=== PATIENT | female | born 2000 | race Caucasian/White ===

== ENCOUNTER 2018-01-12 13:25 | Emergency (ER) | payer MEDICAID, OTHER ==
[2018-01-12 15:41] VITALS: BP 123/70
--- NOTE | 2018-01-12 16:16 | UC ---
Eye Complaint HPI - HPI Summary HPI Summary: 17-year-old female presents with complaints of redness and swelling below both her eyes for past 3 days. Associated with some mild redness of the eyes, itching, and tearing. She states she had a similar episode a little over 2 weeks ago that eventually resolved on its own after about 10 days of symptoms. She has tried [id number] Visine and Benadryl with no relief of symptoms. Denies injury, fever, chills, purulent drainage, visual changes, eye pain, nasal congestion, ear pain, or cough. - History of Current Complaint Chief Complaint: UCSkin Stated Complaint: BILATERAL EYE COMPLAINT Time Seen by Provider: 01/12/18 15:48 Hx Obtained From: Patient Hx Last Menstrual Period: 12/21/17 ?: No Onset/Duration: Gradual Onset, Lasting Days - 3 Timing: Constant Severity Initially: Mild Severity Currently: Mild Pain Intensity: 3 Location of Injury: Conjunctiva, Eye Lid (lower) Aggravating Factor(s): Nothing Alleviating Factor(s): Nothing Associated Signs And Symptoms: Positive: Drainage (Clear), Swelling. Negative: Photophobia, Drainage (Purulent), Vision Impairment Bilateral, Fever Related History: Similar Episode - Allergies/Home Medications Allergies/Adverse Reactions: Allergies Allergy/AdvReac Type Severity Reaction Status Date / Time Penicillins Allergy Hives Verified 01/12/18 15:37 Home Medications: Home Medications Norgestimate-Ethinyl Estradiol [Ortho-Cyclen 28 Tablet] 1 each PO BEDTIME [History Confirmed 01/12/18] Tetrahydrozoline HCl/Zinc Sulf [Visine Allergy Relief Drop] 2 drop BOTH EYES DAILY 01/12/18 [History Confirmed 01/12/18] PMH/Surg Hx/FS Hx/Imm Hx Previously Healthy: Yes - denies significant past medical history - Surgical History Surgical History: None - Family History Family History: Noncontributory - Social History Occupation: Student Lives: With Family Alcohol Use: None Substance Use Type: None Smoking Status (MU): Never Smoked Tobacco Household Exposure Type: Cigarettes Review of Systems Constitutional: Fever Skin: Other - bilateral lower lid erythema Eyes: Eye Redness, Other - Eye itching, tearing ENT: Negative Respiratory: Negative Cardiovascular: Negative Is Patient Immunocompromised?: No All Other Systems Reviewed And Are Negative: Yes Physical Exam Triage Information Reviewed: Yes Appearance: Well-Appearing, No Pain Distress, Well-Nourished Vital Signs: Initial Vital Signs Temp 98.0 F 01/12/18 15:31 Pulse 73 01/12/18 15:31 Resp 18 01/12/18 15:31 BP 123/70 01/12/18 15:31 Pulse Ox 100 01/12/18 15:31 Vital Signs Reviewed: Yes Eyes: Positive: Other: - Mild bilateral conjunctival injection without discharge. Mild erythema and puffiness to bilateral lower lids. No lesions noted. ENT: Positive: Pharynx normal, TMs normal, Uvula midline. Negative: Nasal congestion, Nasal drainage Neck: Positive: Supple, Nontender Respiratory: Positive: Lungs clear, Normal breath sounds, No respiratory distress Cardiovascular: Positive: RRR, No Murmur Neurological: Positive: Alert Skin: Positive: Other - See above. Eye Complaint Course/Dx - Course Course Of Treatment: 17 year old female presents with complaints of bilateral eye itching, redness, and tearing with mild erythema and swelling to lower lids. States had simlilar episode couple weeks ago that resolved on its own. Exam consistent with an allergic conjunctivitis. Will treat with olopatadine eye drops and have her follow up with opthalmology in 3 days if no improvement. - Differential Dx/Diagnosis Differential Diagnosis/HQI/PQRI: Conjunctivitis, Periorbital Cellulitis Provider Diagnoses: Allergic conjunctivitis Discharge - Sign-Out/Discharge Documenting (check all that apply): Patient Departure All imaging exams completed and their final reports reviewed: No Studies - Discharge Plan Condition: Stable Disposition: HOME Prescriptions: Olopatadine 0.1% OPHTH (NF) [Patanol 0.1% OPHTH (NF)] 1 drop BOTH EYES DAILY 14 Days #1 btl Patient Education Materials: Conjunctivitis (ED) Forms: *School Release Referrals: Mor Mancilla MD [Primary Care Provider] - () Moe Jimenez MD [Medical Doctor] - 3 Days (If no improvement.) Additional Instructions: Your symptoms are consistent with allergic conjunctivitis. Start olopatadine 1 drop both eyes daily. Using [id number] non-drowsy antihistamine such as Zyrtec, Claritin, or Parris. Follow-up with ophthalmology in 3 days if symptoms do not improve. Seek immediate medical attention in the emergency room if you develop fever greater than 100.5 F, have changes in her vision, purulent drainage from the eyes, severe pain in the eye, increased redness and swelling around her eyes, or any worsening of symptoms. - Billing Disposition and Condition Condition: STABLE Disposition: Home
== END 2018-01-12 16:34 | disposition home or self-care (01) ==
LOC: UCCORT 13:25
DX: H10.13 Acute atopic conjunctivitis, bilateral (principal); Z88.0 Allergy status to penicillin
CPT/HCPCS: 99212; G0463

== ENCOUNTER 2018-04-30 16:23 | Emergency (ER) | payer MEDICAID, OTHER ==
[2018-04-30 16:38] VITALS: BP 133/85
--- NOTE | 2018-04-30 16:43 | UC ---
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 " -has been going to track practice x 3 days and thinks its getting worse. -temp 100. feels like she has shards of glass in her throat. + nasal congestion. + sinus pain x 3 days. + cough. no wheezing. no asthma. -has had strep in past - History of Current Complaint Chief Complaint: UCGeneralIllness Stated Complaint: FEVER/HEADACHE/CONGESTION Time Seen by Provider: 04/30/18 16:34 Hx Last Menstrual Period: 04/15/18 Pain Intensity: 4 - Allergies/Home Medications Allergies/Adverse Reactions: Allergies Allergy/AdvReac Type Severity Reaction Status Date / Time Penicillins Allergy Hives Verified 04/30/18 16:38 Home Medications: Home Medications Ibuprofen TAB* [Advil TAB*] 200 mg PO Q8H PRN 04/30/18 [History Confirmed ] PMH/Surg Hx/FS Hx/Imm Hx Previously Healthy: Yes - Surgical History Surgical History: None - Family History Known Family History: Positive: Respiratory Disease - +astma Family History: Noncontributory - Social History Alcohol Use: None Substance Use Type: None Smoking Status (MU): Never Smoked Tobacco Household Exposure Type: Cigarettes Review of Systems All Other Systems Reviewed And Are Negative: Yes Constitutional: Positive: Negative Skin: Positive: Negative Eyes: Positive: Negative ENT: Positive: Sore Throat, Nasal Discharge, Sinus Pain/Tenderness Respiratory: Positive: Negative, Cough Cardiovascular: Positive: Negative Gastrointestinal: Positive: Negative Genitourinary: Positive: Negative Motor: Positive: Negative Neurovascular: Positive: Negative Musculoskeletal: Positive: Negative Neurological: Positive: Negative Psychological: Positive: Negative Is Patient Immunocompromised?: No Physical Exam Triage Information Reviewed: Yes Appearance: Ill-Appearing - mild-moderate. very pleasant. Vital Signs: Initial Vital Signs Temp 100.6 F 04/30/18 16:35 Pulse 104 04/30/18 16:35 Resp 16 04/30/18 16:35 BP 133/85 04/30/18 16:35 Pulse Ox 100 04/30/18 16:35 Eye Exam: Normal ENT: Positive: Pharyngeal erythema, Nasal congestion, TMs normal, Uvula midline. Negative: Tonsillar swelling, Tonsillar exudate, Hoarse voice, Sinus tenderness Neck exam: Normal Neck: Positive: Supple, Nontender, No Lymphadenopathy Respiratory Exam: Normal Respiratory: Positive: Lungs clear, Normal breath sounds, No respiratory distress, No accessory muscle use. Negative: Crackles, Rhonchi, Stridor, Wheezing Cardiovascular Exam: Normal Cardiovascular: Positive: RRR, No Murmur, Pulses Normal Abdomen Description: Positive: Nontender, Soft Musculoskeletal Exam: Normal Neurological Exam: Normal Psychological Exam: Normal Skin Exam: Normal UC Diagnostic Evaluation - Laboratory O2 Sat by Pulse Oximetry: 100 Respiratory Course/Dx - Course Course Of Treatment: rapid flu neg. rapid strep - Differential Dx/Diagnosis Differential Diagnosis/HQI/PQRI: Bronchitis, Laryngitis, Lower Resp Infection, Sinusitis Provider Diagnosis: Upper respiratory infection Discharge - Sign-Out/Discharge Documenting (check all that apply): Patient Departure All imaging exams completed and their final reports reviewed: No Studies - Discharge Plan Condition: Stable Disposition: HOME Patient Education Materials: Upper Respiratory Infection (ED) Forms: *Work Release Referrals: No Primary Care Phys,NOPCP [Primary Care Provider] - Additional Instructions: Rapid flu and rapid strep tests are both negative. Increase fluids and rest. You can follow up here or with your PCP if your symptoms increase or persist. - Billing Disposition and Condition Condition: STABLE Disposition: Home
== END 2018-04-30 17:33 | disposition home or self-care (01) ==
LOC: UCCORT 16:23
DX: J06.9 Acute upper respiratory infection, unspecified (principal); Z88.0 Allergy status to penicillin
CPT/HCPCS: 87651; 99211; G0463

== ENCOUNTER 2019-06-19 12:26 | Emergency (ER) | payer OTHER ==
[2019-06-19 13:47] VITALS: BP 122/82
--- NOTE | 2019-06-19 13:58 | UC ---
Skin Complaint HPI - HPI Summary HPI Summary: 18-year-old female presents with complaints of a nontraumatic blister to the tip of her left great toe. States last night she was outside in the cold for an extended period of time while wearing open-toed shoes as she was staying with a friend who was intoxicated and unwilling to return indoors. States last night she noticed that the tip of the toe was a pale/bluish color that appears to be normal color today. Notes some "aching" of the toe but denies any joint pain or decreased range of motion. Tetanus up-to-date. Denies fever, chills, erythema, streaking, numbness, or tingling. - History of Current Complaint Chief Complaint: UCSkin Time Seen by Provider: 06/19/19 13:47 Stated Complaint: LEFT GREAT TOE SKIN CONCERN Hx Obtained From: Patient Hx Last Menstrual Period: 06/12/2019 Pain Intensity: 0 - Allergy/Home Medications Allergies/Adverse Reactions: Allergies Allergy/AdvReac Type Severity Reaction Status Date / Time Penicillins Allergy Hives Verified 04/30/18 16:38 Home Medications: Home Medications Norgestimate-Ethinyl Estradiol [Ortho-Cyclen 28 Tablet] 1 each PO BEDTIME [History Confirmed 06/19/19] Ibuprofen TAB* [Advil TAB*] 400 - 800 mg PO Q8H PRN 04/30/18 [History Confirmed 06/19/19] PMH/Surg Hx/FS Hx/Imm Hx Previously Healthy: Yes - Denies significant PMH - Surgical History Surgical History: None - Family History Known Family History: Positive: Respiratory Disease - +asthma - Social History Occupation: Student Lives: Dormitory/Roommates Alcohol Use: Occasionally Substance Use Type: None Smoking Status (MU): Never Smoked Tobacco Household Exposure Type: Cigarettes Review of Systems All Other Systems Reviewed And Are Negative: Yes Constitutional: Negative: Fever, Chills Skin: Positive: Other - See HPI Respiratory: Positive: Negative Cardiovascular: Positive: Negative Gastrointestinal: Positive: Negative Genitourinary: Positive: Negative Motor: Negative: Weakness Neurovascular: Negative: Decreased Sensation Musculoskeletal: Negative: Arthralgia Neurological/Mental Status: Positive: Negative Is Patient Immunocompromised?: No Physical Exam - Summary Physical Exam Summary: GENERAL APPEARANCE: Well developed, well nourished, alert and cooperative, and appears to be in no acute distress. CARDIAC: Normal S1 and S2. No S3, S4 or murmurs. Rhythm is regular. There is no peripheral edema, cyanosis or pallor. Extremities are warm and well perfused. Capillary refill is less than 2 seconds. Peripheral pulses intact. LUNGS: Clear to auscultation without rales, rhonchi, wheezing or diminished breath sounds. ABDOMEN: Positive bowel sounds. Soft, nondistended, nontender. No guarding or rebound. No masses or hepatosplenomegally. MUSKULOSKELETAL: ROM intact to all extremities. No joint erythema or tenderness. Normal muscular development. Normal gait. EXTREMITIES: Intact bulla with clear fluid approximately 2 cm in diameter to the tip of the left great toe. Surrounding skin normal color and temperature. SKIN: Skin normal color, texture and turgor. Triage Information Reviewed: Yes Vital Signs: Initial Vital Signs Temp 98.2 F 06/19/19 13:41 Pulse 88 06/19/19 13:41 Resp 16 06/19/19 13:41 BP 122/82 06/19/19 13:41 Pulse Ox 100 06/19/19 13:41 Vital Signs Reviewed: Yes Course/Dx - Course Course Of Treatment: 18-year-old female presents with complaints of a nontraumatic blister to the tip of her left great toe. States last night she was outside in the cold for an extended period of time while wearing open-toed shoes as she was staying with a friend who was intoxicated and unwilling to return indoors. States last night she noticed that the tip of the toe was a pale/bluish color that appears to be normal color today. Notes some "aching" of the toe but denies any joint pain or decreased range of motion. Tetanus up-to-date. Denies fever, chills, erythema, streaking, numbness, or tingling. Afebrile. Vital signs stable. Patient had an intact bulla with clear fluid approximately 2 cm in diameter to the tip of the left great toe. Surrounding skin was normal color and temperature. Discussed with the patient that based on her history I suspect that the blister is secondary to some mild frostbite and am recommending conservative wound management at this time. Antibiotic ointment and a bulky gauze dressing as applied by the RN. She is to follow up with the wound care clinic in 3-5 days for further assessment and treatment. Anticipatory guidance and warning symptoms reviewed with the patient. Verbalizes understanding and agrees with plan of care. - Differential Diagnoses - Skin Complaint Differential Diagnoses: Cellulitis, Frostbite, Other - Traumatic blister - Diagnoses Provider Diagnosis: Skin bulla Discharge ED - Sign-Out/Discharge Documenting (check all that apply): Patient Departure All imaging exams completed and their final reports reviewed: No Studies - Discharge Plan Condition: Stable Disposition: HOME Patient Education Materials: Frostbite (ED) Referrals: No Primary Care Phys,NOPCP [Primary Care Provider] - Additional Instructions: Based on your history I suspect that the blister to your left great toe is likely from some mild frostbite. Avoid any further cold exposure. Make sure you are keeping your feet as warm as possible. Wear socks and close-toed shoes. Leave the blister intact as long as possible as this will protect the underlying tissue and prevent infection. Keep the skin clean with mild soap and water. Apply some antibiotic ointment to the affected area and keep the area covered with a bulky gauze dressing to protect the skin and absorb any drainage should the blister open. Take ibuprofen (Advil, Motrin) 600 mg every 8 hours as needed for pain. Follow up at the [facility] at [address] [place] [address] in [place], [place] in 3-5 days for further assessment and treatment. Call to schedule an appointment. Seek immediate medical attention in the emergency room if you develop a fever greater than 100.5 F, have redness that rapidly spreads, swelling of the toes, red streaking up the foot or leg, pus draining from the wound, the skin turns black, or any worsening of symptoms. - Billing Disposition and Condition Condition: STABLE Disposition: Home
== END 2019-06-19 14:30 | disposition home or self-care (01) ==
LOC: UCCORT 12:26
DX: R23.8 Other skin changes (principal); Z88.0 Allergy status to penicillin
CPT/HCPCS: 99212; G0463